=== PATIENT | female | born 1985 | race African-American/Black ===

== ENCOUNTER 2021-02-12 14:53 | Outpatient (CLI) | payer OTHER, SELFPAY ==
--- NOTE | 2021-02-12 15:12 | ECG_ITS ---
Measurements Intervals [place] Rate: 62 P: 11 HI: 173 QRS: 16 QRSD: 87 T: 11 QT: 434 QTc: 443 Interpretive Statements SINUS RHYTHM BASELINE WANDER- I, II, AVR NORMAL ECG Electronically Signed On 02-12-2021 19:13:14 CDT by Bobo Whiteside D.O.
[2021-02-12 15:34] LABS: Hematocrit 39.1 % (37.0-47.0); Hemoglobin 12.4 g/dL (12.0-15.0); Mean Corpuscular HGB Conc 31.7 g/dl (32-36); Mean Corpuscular Hemoglobin 26.3 pg (26-34); Mean Corpuscular Volume 82.8 fl (80-100); Mean Platelet Volume 11.1 fl (7.4-10.4); Platelet Count Result 296 k/mm3 (150-375); Red Blood Count 4.72 M/mm3 (4.2-5.4); Red Cell Distribution Width 14.4 % (11.5-14.5); White Blood Count 4.8 K/mm3 (4.5-10.0)
[2021-02-12 15:51] LABS: Alanine Aminotransferase 45 U/L (4-35); Albumin Level 4.4 g/dL (3.5-5.1); Alkaline Phosphatase 83 U/L (38-126); Anion Gap 11 mmol/L (8-16); Aspartate Amino Transferase 47 U/L (14-36); Bilirubin,Total 0.3 mg/dL (0.2-1.3); Blood Urea Nitrogen 18 mg/dL (7-17); Calcium 9.2 mg/dL (8.4-10.2); Carbon Dioxide 28 mmol/L (22-30); Chloride 101 mmol/L (98-107); Estimated Glomerular Filt Rate > 60; Glucose 86 mg/dL (65-105); Potassium 3.5 mmol/L (3.4-5.0); Sodium 140 mmol/L (137-145)
[2021-02-12 16:06] LABS: Hemoglobin A1C 5.7 % (<5.7)
[2021-02-12 17:11] LABS: Free T4 Free Thyroxine 0.91 ng/mL (0.78-2.19)
[2021-02-12 21:44] LABS: Hepatitis B Surface Antigen Negative (Negative)
[2021-02-12 21:56] LABS: Hepatitis C Virus Antibody Negative (Negative)
[2021-02-12 22:12] LABS: Rubella IgG Antibody > 120.0 IU/ML
[2021-02-14 14:44] LABS: HIV 1 2 Ag Ab 4th Gen w Rflxs Non-reactive (Non-reactive)
[2021-02-15 04:49] LABS: FSH 7.7 mIU/mL (***); LH 6.6 mIU/mL (***); Prolactin 5.7 ng/mL (***)
[2021-02-15 17:11] LABS: Testosterone Free 4.4 pg/mL (0.1-6.4); Testosterone Total 43 ng/dL (2-45)
== END 2021-02-12 14:54 | disposition home or self-care (01) ==
PROVIDERS: Visit Provider Obstetrics & Gynecology
DX: E28.2 Polycystic ovarian syndrome (principal); I10 Essential (primary) hypertension
CPT/HCPCS: 36415; 80053; 83001; 83002; 83036; 83498; 84146; 84402; 84403; 84439; 84443; 85027; 86762; 86787; 86803; 87340; 87389; 93005

== ENCOUNTER 2021-02-16 10:10 | Outpatient (CLI) | payer OTHER, SELFPAY ==
[2021-02-20 04:26] LABS: Insulin Level Total 11.5 uIU/mL (<=19.6)
== END 2021-02-16 10:11 | disposition home or self-care (01) ==
PROVIDERS: Visit Provider Obstetrics & Gynecology
DX: E28.2 Polycystic ovarian syndrome (principal)
CPT/HCPCS: 36415; 83525

== ENCOUNTER 2021-03-13 08:11 | Outpatient (CLI) | payer OTHER, SELFPAY ==
--- NOTE | ~2021-03-13 | US_ITS ---
US right upper quadrant DATE: 03/13/2021 09:06 INDICATION: Elevated liver enzymes TECHNIQUE: Real-time imaging of liver, pancreas, gallbladder COMPARISON: None FINDINGS: The pancreatic tail is obscured. The pancreas otherwise appears unremarkable. Hepatic steatosis. Normal hepatopedal portal venous flow direction. No hepatic space-occupying mass l esion is evident. The common bile duct measures 4.4 mm, normal. No gallstones or gallbladder wall thickening are evident. No pericholecystic fluid. Negative sonograp hic Costello's sign. IMPRESSION: Pancreatic tail is obscured Hepatic steatosis Reviewed, dictated and finalized at [facility]. Reviewed, dictated and finalized at [facility].
== END 2021-03-13 08:12 | disposition home or self-care (01) ==
PROVIDERS: Visit Provider Obstetrics & Gynecology
DX: R79.89 Other specified abnormal findings of blood chemistry (principal); K76.0 Fatty (change of) liver, not elsewhere classified
CPT/HCPCS: 76705